=== PATIENT | male | born 1945 ===

== ENCOUNTER 2017-01-30 16:18 | Emergency (ER) | payer MEDICARE, MEDICAID ==
[2017-01-30 16:18] VITALS: BMI 26.0
[2017-01-30 16:28] VITALS: RESP 19; O2SAT 100
[2017-01-30] MEDS ORDERED: Sodium Chloride 0.9% 1,000 ML IV STA (16:54)
[2017-01-30 17:11] LABS: BASO # 0.1 K/uL (0.0-0.2); BASO % 0.9 % (0.0-2.0); EOS # 0.1 K/uL (0.0-0.7); EOS % 1.7 % (0.0-4.0); HEMATOCRIT 44.1 % (35.0-51.0); LYMPH # 2.5 K/uL (1.0-4.3); LYMPH % 30.4 % (20.0-40.0); MEAN CELL VOLUME 95.5 fl (80.0-94.0); MEAN CORPUSCULAR HGB CONC 33.5 g/dL (33.0-37.0); MEAN PLATELET VOLUME 8.5 fl (7.2-11.7); MONO # 0.6 K/uL (0.0-0.8); MONO % 6.9 % (0.0-10.0); NEUT # 4.9 K/uL (1.8-7.0); NEUT % 60.1 % (50.0-75.0); WHITE BLOOD COUNT 8.2 K/uL (4.8-10.8)
--- NOTE | 2017-01-30 17:13 | ED PDOC ---
HPI: Headache Time Seen by Provider: 01/30/17 16:39 Chief Complaint (Nursing): Headache Chief Complaint (Provider): Headache History Per: Patient History/Exam Limitations: no limitations Onset/Duration Of Symptoms: Days (x 2) Current Symptoms Are (Timing): Still Present Additional Complaint(s): 71 y/o male who reports to the ED complaining of a headache, onset last night, at base of neck travelling up to his head. States he believes his brain is hurting. Associated with nausea, dizziness, some chest pain, and vomited once last night. Currently asymptomatic. Denies cough, shortness of breath, fever, and chills. Patient with past medical history of hypertension, diabetes, and hyperlipidemia. States he is compliant with blood pressure and diabetic medications, and in addition he takes Gabapentin for neuropathy. PMD: Ira Past Medical History Reviewed: Historical Data, Nursing Documentation, Vital Signs Vital Signs: Last Vital Signs Temp 98.9 F 01/30/17 16:26 Pulse 101 H 01/30/17 16:26 Resp 19 01/30/17 16:26 BP 116/64 01/30/17 16:26 Pulse Ox 100 01/30/17 16:26 - Medical History PMH: Anxiety, Asthma, Depression, Diabetes, HTN, Hypercholesterolemia, TIA Denies: HIV, Chronic Kidney Disease - Surgical History Surgical History: No Surg Hx - Family History Family History: States: Unknown Family Hx - Social History Current smoker - smoking cessation education provided: No Alcohol: None Drugs: Denies - Home Medications Home Medications: Ambulatory Orders Medication Instructions Recorded Atorvastatin [Lipitor] 10 mg PO DAILY #0 tab 03/18/16 Fenofibrate,Micronized [Lofibra] 134 mg PO DAILY #0 capsule 03/18/16 Gabapentin [Neurontin] 800 mg PO TID #0 tab 03/18/16 Lisinopril [Zestril] 10 mg PO DAILY #0 tab 03/18/16 OLANZapine [Zyprexa] 2.5 mg PO DAILY #0 tab 03/18/16 [id number] Ethyl Esters 1 GM 2 gm PO BID #0 sgl 03/18/16 [Lovaza] Pioglitazone [Actos] 15 mg PO DAILY #0 tab 03/18/16 Sertraline [Zoloft] 100 mg PO DAILY #0 tab 10/13/16 Acetaminophen [Tylenol 325mg tab] 650 mg PO Q6H PRN #50 tab 01/30/17 Folic Acid 1 mg PO DAILY 01/30/17 - Allergies Allergies/Adverse Reactions: Allergies Allergy/AdvReac Type Severity Reaction Status Date / Time No Known Allergies Allergy Verified 07/08/16 12:07 Review of Systems ROS Statement: Except As Marked, All Systems Reviewed And Found Negative Constitutional: Negative for: Fever, Chills Cardiovascular: Positive for: Chest Pain (last night) Gastrointestinal: Positive for: Nausea, Vomiting (x1 last night) Neurological: Positive for: Headache, Dizziness Physical Exam - Reviewed Nursing Documentation Reviewed: Yes Vital Signs Reviewed: Yes - Physical Exam Appears: Positive for: Non-toxic, No Acute Distress Head Exam: Positive for: ATRAUMATIC, NORMAL INSPECTION, NORMOCEPHALIC Skin: Positive for: Normal Color, Dry Eye Exam: Positive for: EOMI, Normal appearance, PERRL ENT: Positive for: Normal ENT Inspection, Pharynx Is (clear) Neck: Positive for: Normal, Painless ROM, Supple Cardiovascular/Chest: Positive for: Regular Rate, Rhythm. Negative for: Murmur Respiratory: Positive for: Normal Breath Sounds. Negative for: Accessory Muscle Use, Respiratory Distress Gastrointestinal/Abdominal: Positive for: Normal Exam, Bowel Sounds, Soft. Negative for: Tenderness Back: Positive for: Normal Inspection Extremity: Positive for: Normal ROM, Capillary Refill (< 2 sec), Other ( Strength is 5/5 throughout). Negative for: Pedal Edema, Deformity Neurologic/Psych: Positive for: Alert, life educator II-XII (intact), Oriented. Negative for: Motor/Sensory Deficits - Laboratory Results Result Diagrams: 01/30/17 17:00 01/30/17 17:00 - ECG O2 Sat by Pulse Oximetry: 100 (RA) Pulse Ox Interpretation: Normal - Progress Re-evaluation Time: 18:13 Condition: Improved Medical Decision Making Medical Decision Making: Time: 16:51 Initial Impression: Tension headache, R/o intracranial process Initial Plan: --BMP --CBC --ESR --Urine dipstick --EKG --NS IV 1000 ml at 1000 mls/hr --Toradol 30 mg IV --CT Head w/o contrast --Pending reevaluation and disposition Scribe Attestation: Documented by Emma Ren, acting as a scribe for Haylie Mchugh MD Provider Scribe Attestation: All medical record entries made by the Scribe were at my direction and personally dictated by me. I have reviewed the chart and agree that the record accurately reflects my personal performance of the history, physical exam, medical decision making, and the department course for this patient. I have also personally directed, reviewed, and agree with the discharge instructions and disposition. Disposition - Clinical Impression Clinical Impression: Headache, Dehydration - Patient ED Disposition Is Patient to be Admitted: No Doctor Will See Patient In The: Office Counseled Patient/Family Regarding: Diagnosis, Need For Followup - Disposition Disposition: Routine/Home Disposition Time: 18:14 Condition: IMPROVED Prescriptions: Acetaminophen [Tylenol 325mg tab] 650 mg PO Q6H PRN #50 tab PRN Reason: Pain, Mild (1-3) Instructions: Tension Headache (ED), Dehydration (ED) Forms: [email or web address] (Japanese) Print Language: IRANIAN - POA Present On Arrival: None
[2017-01-30 17:16] LABS: BLOOD UREA NITROGEN 33 mg/dl (9-20); CARBON DIOXIDE 22 mmol/L (22-30); CHLORIDE 107 mmol/L (98-107); GFR AFRICAN-AMERICAN > 60; GLUCOSE,RANDOM 140 mg/dL (75-110); POTASSIUM 4.4 MMOL/L (3.6-5.0); SODIUM 141 mmol/l (132-148)
--- NOTE | 2017-01-30 17:42 | CT ---
PROCEDURE: CT HEAD WITHOUT CONTRAST. HISTORY: Headache COMPARISON: 07/08/2016. TECHNIQUE: Axial computed tomography images were obtained through the head/brain without intravenous contrast. Radiation dose: Total exam DLP = 829.92 mGy-cm. This CT exam was performed using one or more of the following dose reduction techniques: Automated exposure control, adjustment of the mA and/or kV according to patient size, and/or use of iterative reconstruction technique. FINDINGS: HEMORRHAGE: No intracranial hemorrhage. BRAIN: Sumner-white matter differentiation is preserved. There is no mass, mass effect or abnormal extra-axial fluid collection. There is an old lacunar infarction in the right basal ganglia. VENTRICLES: There is mild age-related global parenchymal volume loss and proportionate enlargement of the ventricles and cortical sulci CALVARIUM: The skull base and calvarium are normal. PARANASAL SINUSES: Predominantly clear. MASTOID AIR CELLS: Predominantly clear. OTHER FINDINGS: None. IMPRESSION: No acute intracranial abnormality. Old lacunar infarction in the right basal ganglia. Mild age-related global parenchymal volume loss.
[2017-01-30 18:59] VITALS: BP 126/78; PULSE 78; TEMP 97.6
--- NOTE | 2017-01-31 21:52 | CARD ---
APPROVED REPORT EKG Measurement Heart [id number] <Conclusion> Normal sinus rhythm Nonspecific ST abnormality Abnormal ECG
== END 2017-01-30 19:08 | disposition home or self-care (01) ==
LOC: H.ER 16:18
DX: R51 Headache (principal); E86.0 Dehydration; R42 Dizziness and giddiness; E11.9 Type 2 diabetes mellitus without complications; E78.5 Hyperlipidemia, unspecified; I10 Essential (primary) hypertension; Z86.73 Personal history of transient ischemic attack (TIA), and cerebral infarction without residual deficits
CPT/HCPCS: 70450; 80048; 85025; 85651; 93005; 96374; 99284; J1885; J7040

== ENCOUNTER 2017-03-12 16:06 | Emergency (ER) | payer MEDICARE, MEDICAID ==
[2017-03-12 16:06] VITALS: BMI 26.0
[2017-03-12 16:13] VITALS: TEMP 97.8
[2017-03-12] MEDS ORDERED: Sodium Chloride 0.9% 1,000 ML IV STA (16:43)
--- NOTE | 2017-03-12 16:55 | ED PDOC ---
HPI: Headache History Per: Patient History/Exam Limitations: language barrier ([email or web address] used, [id number]) Onset/Duration Of Symptoms: Hrs Severity: Severe Pain Scale Rating Of: 9 Quality: Pressure Associated Symptoms: Photophobia, Other (phonophobia ) Additional Complaint(s): 71 YO Male with PMH of TIA, DM II, HTN, HLD, depression presents to [facility] ED for headache. Per pt, headache started around 9 PM last night, and has persisted since its onset. Headache is located in the occipital area b/l, with no radiation and describes it as a pressure type of pain. Pt rates the pain as a 9/ 10, and has been the same since its onset. Pt did not take any PO medications for the headache. There is no associated alleviating factors or exacerbating factors. There is additional photophobia and phonophobia associated with the headache. Pt states that he was seen in the ED for similar headaches in the past. Denies n/v, visual changes, and remains afebrile. Of note, pt was seen in the ED 01/2017 for a headache. Presentation was similar at the time. CT head (01/30/17) was done findings include no acute intracranial abnormality. Old lacunar infraction in the right basal ganglia. Mild age related global parenchymal volume loss. MRI brain (03/2016) No acute intercranial findings. Pt is Armenian speaking. [employer] live program director scouting used, [id number]. <Alicia Mcfarland - Last Filed: 03/12/17 17:39> <Monica Lofton - Last Filed: 03/12/17 18:24> Time Seen by Provider: 03/12/17 16:11 Chief Complaint (Nursing): Headache Supervising Attending Note - Supervising Attending Note The Documented history was done by the: Physician Low Vision Therapist, Attending Physician The documented physical exam was done by the: Physician Low Vision Therapist, Attending Physician The documented procedures were done by the: Physician Low Vision Therapist, Attending Physician - Attestation: I have personally seen and examined this patient.: Yes I have fully participated in the care of the patient.: Yes I have reviewed all pertinent clinical information: Yes <Monica Lofton - Last Filed: 03/12/17 18:24> Past Medical History Reviewed: Historical Data, Nursing Documentation, Vital Signs Vital Signs: Last Vital Signs Temp 97.8 F 10/07/17 16:09 Pulse 80 03/12/17 16:09 Resp 20 03/12/17 16:09 BP 143/56 L 03/12/17 16:09 Pulse Ox 100 03/12/17 16:09 - Medical History PMH: Anxiety, Asthma, Depression, Diabetes, HTN, Hypercholesterolemia, TIA Denies: HIV, Chronic Kidney Disease - Surgical History Surgical History: No Surg Hx - Family History Family History: States: Unknown Family Hx - Social History Current smoker - smoking cessation education provided: No Ex-Smoker (has not smoked in the last 12 months): Yes (5 cigarettes a day x >10 yrs) Alcohol: None Drugs: Denies <Alicia Mcfarland - Last Filed: 03/12/17 17:39> Vital Signs: Last Vital Signs Temp 97.8 F 03/12/17 16:09 Pulse 80 03/12/17 16:09 Resp 20 03/12/17 16:09 BP 143/56 L 03/12/17 16:09 Pulse Ox 100 03/12/17 17:42 <Monica Lofton - Last Filed: 03/12/17 18:24> - Home Medications Home Medications: Ambulatory Orders Medication Instructions Recorded Atorvastatin [Lipitor] 10 mg PO DAILY #0 tab 03/18/16 Fenofibrate,Micronized [Lofibra] 134 mg PO DAILY #0 capsule 03/18/16 Gabapentin [Neurontin] 800 mg PO TID #0 tab 03/18/16 Lisinopril [Zestril] 10 mg PO DAILY #0 tab 03/18/16 OLANZapine [Zyprexa] 2.5 mg PO DAILY #0 tab 03/18/16 Gbfug-4-[id number] Ethyl Esters 1 GM 2 gm PO BID #0 sgl 03/18/16 [Lovaza] Pioglitazone [Actos] 15 mg PO DAILY #0 tab 03/18/16 Sertraline [Zoloft] 100 mg PO DAILY #0 tab 03/18/16 Acetaminophen [Tylenol 325mg tab] 650 mg PO Q6H PRN #50 tab 01/30/17 Folic Acid 1 mg PO DAILY 01/30/17 - Allergies Allergies/Adverse Reactions: Allergies Allergy/AdvReac Type Severity Reaction Status Date / Time No Known Allergies Allergy Verified 07/08/16 12:07 Review of Systems ROS Statement: Except As Marked, All Systems Reviewed And Found Negative Eyes: Negative for: Pain, Vision Change Neurological: Positive for: Headache (b/l Occiputal area. ). Negative for: Weakness, Numbness, Incoordination, Confusion, Dizziness <BrunaAlicia - Last Filed: 03/12/17 17:39> Physical Exam - Reviewed Nursing Documentation Reviewed: Yes Vital Signs Reviewed: Yes - Physical Exam Appears: Positive for: Well, Non-toxic, No Acute Distress Head Exam: Positive for: ATRAUMATIC, NORMAL INSPECTION, NORMOCEPHALIC Skin: Positive for: Normal Color, Warm, DRY Eye Exam: Positive for: Normal appearance, EOMI, PERRL, Other (no periorbital tenderness ) ENT: Positive for: Normal ENT Inspection Neck: Positive for: Normal, Painless ROM, See Diagram (kernig sign neg ) Cardiovascular/Chest: Positive for: Regular Rate, Rhythm Respiratory: Positive for: CNT, Normal Breath Sounds Gastrointestinal/Abdominal: Positive for: Normal Exam, Bowel Sounds, Soft Back: Positive for: Normal Inspection Extremity: Positive for: Normal ROM Neurologic/Psych: Positive for: Alert, application security developer II-XII, Oriented, Gait (Normal gait, pt seen walking without any difficulties ). Negative for: Motor/Sensory Deficits, Aphasia, Facial Droop <BrunaAlicia - Last Filed: 03/12/17 17:39> - Laboratory Results Result Diagrams: 03/12/17 17:07 03/12/17 17:07 - ECG O2 Sat by Pulse Oximetry: 100 - Progress ED Course And Treament: Management was discussed with pt, he agrees with management. Iv fluids, acetaminophen and ketoralac administered. Pending blood work and UA. <BrunaAlicia - Last Filed: 03/12/17 17:39> - Laboratory Results Result Diagrams: 03/12/17 17:07 03/12/17 17:07 - Progress Re-evaluation Time: 18:15 Condition: Re-examined, Improved <Monica Lofton - Last Filed: 03/12/17 18:24> Medical Decision Making Medical Decision Making: Impression recurrent headaches Diff include tension headaches migraines Plan labs Toradol IV Tylenol PO reassess <Monica Lofton - Last Filed: 03/12/17 18:24> Disposition <Alicia Mcfarland - Last Filed: 03/12/17 17:39> - Patient ED Disposition Is Patient to be Admitted: No Doctor Will See Patient In The: Office Counseled Patient/Family Regarding: Studies Performed, Diagnosis, Need For Followup - Disposition Disposition: Routine/Home Disposition Time: 18:19 <Monica Lofton Ramonita - Last Filed: 03/12/17 18:24> - Clinical Impression Clinical Impression: Headache, Recurrent headache - Disposition Referrals: Sabino Roth MD [Staff Provider] - Chevy Evans MD [Staff Provider] - Condition: GOOD Additional Instructions: Take tylenol or advil for headaches. Follow up with your PCP in 2-3 days. Instructions: General Headache (ED) Print Language: SLOVAK
[2017-03-12 17:20] LABS: BASO # 0.1 K/uL (0.0-0.2); BASO % 0.7 % (0.0-2.0); EOS # 0.1 K/uL (0.0-0.7); EOS % 1.1 % (0.0-4.0); LYMPH # 2.6 K/uL (1.0-4.3); LYMPH % 32.9 % (20.0-40.0); MEAN CELL VOLUME 95.7 fl (80.0-94.0); MEAN CORPUSCULAR HEMOGLOBIN 31.6 pg (27.0-31.0); MEAN PLATELET VOLUME 9.1 fl (7.2-11.7); MONO # 0.6 K/uL (0.0-0.8); MONO % 7.6 % (0.0-10.0); NEUT # 4.5 K/uL (1.8-7.0); NEUT % 57.7 % (50.0-75.0); NRBC % 0.1 % (0.0-0.0); RED CELL DISTRIBUTION WIDTH 14.6 % (11.5-14.5); WHITE BLOOD COUNT 7.8 K/uL (4.8-10.8)
[2017-03-12 17:34] LABS: BLOOD UREA NITROGEN 23 mg/dl (9-20); CALCIUM 9.9 mg/dL (8.4-10.2); CARBON DIOXIDE 21 mmol/L (22-30); CHLORIDE 105 mmol/L (98-107); GFR AFRICAN-AMERICAN > 60; GLUCOSE,RANDOM 110 mg/dL (75-110); POTASSIUM 4.5 MMOL/L (3.6-5.0); SODIUM 140 mmol/l (132-148)
[2017-03-12 18:42] VITALS: BP 129/86; PULSE 78; RESP 16; O2SAT 98
== END 2017-03-12 18:42 | disposition home or self-care (01) ==
LOC: H.ER 16:06
DX: R51 Headache (principal); E11.9 Type 2 diabetes mellitus without complications; I10 Essential (primary) hypertension; Z86.73 Personal history of transient ischemic attack (TIA), and cerebral infarction without residual deficits
CPT/HCPCS: 80048; 85025; 96361; 96374; 99284; J1885; J7040